=== PATIENT | male | born 1965 | race Caucasian/White ===

== ENCOUNTER → 2018-08-20 | Outpatient (CLI) | payer OTHER ==
[2018-08-20 11:10] LABS: CREATININE 1.4 mg/dL (0.6-1.3)
== END ==
LOC: M.CT 10:46
PROVIDERS: Internal Medicine
DX: R91.1 Solitary pulmonary nodule (principal); J43.9 Emphysema, unspecified

== ENCOUNTER → 2019-10-12 | Outpatient (CLI) | payer OTHER | LOC: M.RAD 15:08 | DX: J84.10 Pulmonary fibrosis, unspecified (principal); R91.1 Solitary pulmonary nodule ==